=== PATIENT | female | born 1975 | race Caucasian/White ===

== ENCOUNTER 2019-08-11 10:34 | Outpatient (CLI) | payer OTHER ==
--- NOTE | 2019-08-11 10:54 | RAD ---
EXAM: 3 views of the right shoulder HISTORY: Shoulder pain after fall in February COMPARISON: None FINDINGS: There is no evidence of acute fracture or dislocation. No degenerative changes are present. No soft tissue swelling is seen. The visualized thorax is unremarkable. IMPRESSION: No evidence of acute osseous abnormality.
== END 2019-08-11 10:35 | disposition home or self-care (01) ==
LOC: MADRAD 10:34
PROVIDERS: ATTEND Family Medicine
DX: M25.511 Pain in right shoulder (principal)